=== PATIENT | male | born 1955 | race Caucasian/White ===

== ENCOUNTER 2019-11-30 10:37 | Observation (INO) ==
[2019-11-30] MEDS ORDERED: Isovue-370 500 ML BOTTLE IVP ONE ×2 (11:40→17:02)
[2019-11-30 11:45] LABS: Basophils % 0.4 %; Eosinophils % 0.6 %; Hematocrit 39.8 % (37.5-50.1); Hemoglobin 13.6 g/dL (12.9-16.9); Immature Granulocytes % 0.3 % (0-4); Lymphocytes # 0.7 K/mcL (0.6-4.6); Lymphocytes % 9.9 %; Mean Corpuscular HGB Conc 34.2 g/dL (31.6-35.5); Mean Corpuscular Hemoglobin 30.9 pg (28.0-33.3); Mean Corpuscular Volume 90.5 fL (83.0-100.0); Mean Platelet Volume 11.4 fL (9.4-12.4); Monocytes # 0.4 K/mcL (0.0-1.3); Monocytes % 5.5 %; Platelet Count 186 K/mcL (140-400); Segmented Neutrophils % 83.3 %; White Blood Count 7.1 K/mcL (4.3-11.1)
[2019-11-30] MEDS ORDERED: 0.9 % Sodium Chloride 1,000 ML IVC STA (11:59)
[2019-11-30] MEDS ORDERED: Ondansetron 4 MG/2 ML VIAL IVP STA (11:59)
[2019-11-30] MEDS ORDERED: Ketorolac 15 MG/ML VIAL IVP ONE (11:59)
[2019-11-30 12:07] LABS: Alanine Aminotransferase 8 Units/L (7-52); Albumin 4.4 g/dL (3.5-5.7); Albumin/Globulin Ratio 1.7 (1.1-2.2); Alkaline Phosphatase 147 Units/L (34-104); Amylase 50 Units/L (29-103); Aspartate Amino Transferase 19 Units/L (13-39); BUN/Creatinine Ratio 20 (6-26); Bilirubin,Direct 0.1 mg/dL (0.0-0.2); Bilirubin,Indirect 0.5 mg/dL (0.0-1.0); Bilirubin,Total 0.6 mg/dL (0.3-1.0); Blood Urea Nitrogen 18 mg/dL (8-23); Calcium 9.6 mg/dL (8.6-10.3); Carbon Dioxide 28 mEq/L (23-29); Chloride 99 mEq/L (98-107); Globulin 2.6 g/dL (2.4-3.5); Glucose 103 mg/dL (70-105); Lipase 185 Units/L (11-82); Osmolality,Calculated 284 (280-300); Potassium 4.1 mEq/L (3.5-5.1); Sodium 136 mEq/L (136-145); eGFR For African Americans > 60 (> 60); eGFR For Non-African Americans > 60 (> 60)
[2019-11-30 14:25] LABS: Amorphous Sediment,Urine Few per hpf (None-Few); Bilirubin,Urine Negative (Negative); Blood,Urine Negative (Negative); Clarity,Urine Turbid (Clear); Color,Urine Light-Yellow (Yellow); Glucose,Urine (UA) Normal (Normal); Ketones,Urine 40 mg/dL (Negative); Leukocyte Esterase,Urine Negative (Negative); Mucus,Urine Few per lpf (None-Few); Nitrite,Urine Negative (Negative); Protein,Urine Negative (Neg-Trace); Specific Gravity,Urine > 1.030 (1.010-1.025); Squamous Epithelial Cell,Urine Few per hpf (None-Few); Urobilinogen,Urine Normal (Normal)
[2019-11-30] MEDS ORDERED: Morphine Sulfate 2 MG/ML SYRINGE IVP STA (15:57)
[2019-11-30] MEDS ORDERED: Acetaminophen 325 MG TABLET PO PRN (16:06)
[2019-11-30] MEDS ORDERED: *HR* OxyCODONE Immed Rel 5 MG TABLET PO PRN (16:06)
[2019-11-30] MEDS ORDERED: Naloxone 0.4 MG/ML INJ IVP PRN (16:06)
[2019-11-30] MEDS ORDERED: Ondansetron 4 MG/2 ML VIAL IVP PRN (16:06)
[2019-11-30] MEDS ORDERED: polyethylene glycoL 3350 17 GM POWD.PACK PO PRN (16:40)
[2019-11-30] MEDS: 0.9 % Sodium Chloride 1,000 ML IVC SCH (18:50)
[2019-11-30] MEDS: *HR* HYDROcodone/Acet 5/325 mg TABLET PO PRN (19:48)
[2019-11-30] MEDS: Cholecalciferol (D-3) 1,000 UNIT (25MCG) TABLET PO SCH (21:04)
[2019-11-30] MEDS ORDERED: Gadolinium Contrast Agent (WT Based) IV PRN (21:26)
[2019-12-01 03:22] LABS: Basophils % 0.5 %; Eosinophils # 0.1 K/mcL (0.0-0.6); Eosinophils % 1.4 %; Hematocrit 32.4 % (37.5-50.1); Hemoglobin 11.2 g/dL (12.9-16.9); Immature Granulocytes % 0.3 % (0-4); Lymphocytes # 0.8 K/mcL (0.6-4.6); Lymphocytes % 12.3 %; Mean Corpuscular HGB Conc 34.6 g/dL (31.6-35.5); Mean Corpuscular Hemoglobin 31.9 pg (28.0-33.3); Mean Corpuscular Volume 92.3 fL (83.0-100.0); Mean Platelet Volume 11.6 fL (9.4-12.4); Monocytes # 0.5 K/mcL (0.0-1.3); Monocytes % 7.1 %; Neutrophils # 5.1 K/mcL (1.6-8.9); Platelet Count 168 K/mcL (140-400); Red Blood Count 3.51 M/mcL (4.19-5.50); Red Cell Distribution Width 13.1 % (11.5-14.5); Segmented Neutrophils % 78.4 %; White Blood Count 6.5 K/mcL (4.3-11.1)
[2019-12-01 03:29] LABS: INR 1.2; Prothrombin Time 13.5 Seconds (9.4-12.1)
[2019-12-01 03:32] LABS: Activated Partial Thrombo Time 32.1 Seconds (26.0-36.0)
[2019-12-01 03:51] LABS: BUN/Creatinine Ratio 34 (6-26); Blood Urea Nitrogen 29 mg/dL (8-23); Calcium 8.6 mg/dL (8.6-10.3); Carbon Dioxide 25 mEq/L (23-29); Chloride 105 mEq/L (98-107); Glucose 107 mg/dL (70-105); Osmolality,Calculated 288 (280-300); Potassium 4.3 mEq/L (3.5-5.1); Sodium 136 mEq/L (136-145); eGFR For African Americans > 60 (> 60); eGFR For Non-African Americans > 60 (> 60)
[2019-12-01] MEDS: 0.9 % Sodium Chloride 1,000 ML IVC SCH (05:03)
[2019-12-01] MEDS: Cholecalciferol (D-3) 1,000 UNIT (25MCG) TABLET PO SCH (08:36)
[2019-12-01] MEDS: *HR* HYDROcodone/Acet 5/325 mg TABLET PO PRN (08:36)
[2019-12-01] MEDS ORDERED: 0.9 % Sodium Chloride 500 ML ONE (12:16)
[2019-12-01] MEDS ORDERED: *HR* FentaNYL (PF) 100 MCG/2 ML VIAL IVP ONE (12:27)
[2019-12-01] MEDS ORDERED: *HR* Midazolam HCl 2 MG/2 ML VIAL IVP ONE (12:27)
[2019-12-01 12:59] VITALS: BP 118/84
[2019-12-01] MEDS ORDERED: Dexamethasone 4 MG/ML VIAL IVP ONE (13:55)
[2019-12-01] MEDS ORDERED: dexAMETHasone 4 MG TABLET PO SCH (17:00)
== END 2019-12-01 19:43 | disposition short-term general hospital (02) ==
LOC: EMEROOARM 10:37 → 3BNU 10:37 → SUATTDRO 16:26 → 3BNU 17:01
PROVIDERS: ADMIT Internal Medicine; ATTEND Internal Medicine